=== PATIENT | male | born 1965 | race Caucasian/White ===

== ENCOUNTER → 2017-09-17 | Outpatient (CLI) | payer OTHER ==
--- NOTE | 2017-09-18 06:23 | REP ---
RIGHT FEMUR, FOUR VIEWS: HISTORY: Contusion. There is no acute fracture or dislocation. The joint spaces are normal in appearance. IMPRESSION: There is no acute fracture or dislocation. Signed by Aba Caal MD 09/18/2017 08:24 A
== END ==
LOC: M ADAMS 16:14
PROVIDERS: ATTEND Physician Assistant Medical
DX: S70.11XA Contusion of right thigh, initial encounter (principal); X58.XXXA Exposure to other specified factors, initial encounter; Y92.89 Other specified places as the place of occurrence of the external cause; Y93.89 Activity, other specified; Y99.8 Other external cause status

== ENCOUNTER → 2018-01-31 | Outpatient (CLI) | payer OTHER ==
[2018-01-31 17:06] LABS: ANION GAP 5 MEQ/L (8-16); BLOOD UREA NITROGEN 23 MG/DL (7-18); CALCIUM LEVEL 8.6 MG/DL (8.5-10.1); CARBON DIOXIDE LEVEL 25 MEQ/L (21-32); CHLORIDE LEVEL 112 MEQ/L (98-107); GLOMERULAR FILTRATION RATE > 60.0 (>56); GLUCOSE, FASTING 84 MG/DL (70-100); POTASSIUM SERUM 4.5 MEQ/L (3.5-5.1); SODIUM LEVEL 142 MEQ/L (136-145); URIC ACID 8.6 MG/DL (3.5-7.2)
== END ==
LOC: M WUC 11:24
DX: M10.9 Gout, unspecified (principal)
CPT/HCPCS: 84550

== ENCOUNTER → 2018-07-13 | Outpatient (CLI) | payer OTHER ==
[2018-07-13 13:37] LABS: ALKALINE PHOSPHATASE 86 U/L (45-117); ALT/SGPT 27 U/L (12-78); ANION GAP 9 MEQ/L (8-16); AST/SGOT 19 U/L (7-37); BILIRUBIN,TOTAL 0.6 MG/DL (0.2-1.0); BLOOD UREA NITROGEN 13 MG/DL (7-18); CARBON DIOXIDE LEVEL 25 MEQ/L (21-32); CHLORIDE LEVEL 109 MEQ/L (98-107); CHOLESTEROL LEVEL 190 MG/DL (<200); CREATININE FOR GFR 0.99 MG/DL (0.70-1.30); GLOMERULAR FILTRATION RATE > 60.0 (>56); GLUCOSE, FASTING 84 MG/DL (70-100); HDL CHOLESTEROL 38 MG/DL (>40); NON-HDL-C 152 MG/DL; POTASSIUM SERUM 4.5 MEQ/L (3.5-5.1); SODIUM LEVEL 143 MEQ/L (136-145); TRIGLYCERIDES LEVEL 133 MG/DL (<150)
[2018-07-13 13:38] LABS: ALBUMIN 4.2 GM/DL (3.2-5.2); ALBUMIN/GLOBULIN RATIO 1.35 (1.00-1.93); LDL CHOLESTEROL 125 MG/DL (<100); TOTAL PROTEIN 7.3 GM/DL (6.4-8.2); URIC ACID 7.7 MG/DL (3.5-7.2)
[2018-07-15 00:07] LABS: PSA TOTAL 0.3 ng/mL (0.0-4.0)
== END ==
LOC: M WUC 09:30
DX: Z12.5 Encounter for screening for malignant neoplasm of prostate (principal); M10.9 Gout, unspecified; E78.5 Hyperlipidemia, unspecified
CPT/HCPCS: 84550

== ENCOUNTER 2018-09-14 09:12 | Day surgery (SDC) | payer OTHER ==
[~2018-09-14 09:12] MED LIST: PROPOFOL 200 MG/20 ML VIAL As Ordered
[2018-09-14] MEDS ORDERED: NS 1,000 ML IV (09:45)
== END 2018-09-14 10:57 | disposition home or self-care (01) ==
LOC: M OPP 09:12
DX: Z12.11 Encounter for screening for malignant neoplasm of colon (principal); K57.30 Diverticulosis of large intestine without perforation or abscess without bleeding; K64.8 Other hemorrhoids; I10 Essential (primary) hypertension; M10.9 Gout, unspecified; R06.83 Snoring; Z98.0 Intestinal bypass and anastomosis status; Z79.899 Other long term (current) drug therapy
CPT/HCPCS: 45378

== ENCOUNTER → 2019-03-21 | Outpatient (CLI) | payer OTHER ==
[~2019-03-21] MED LIST changes: +ALLO100T PO; -PROPOFOL 200 MG/20 ML VIAL As Ordered
--- NOTE | 2019-03-22 02:49 | REP ---
Clinical: Left forearm pain. Technique: AP and lateral views of the left forearm. Findings: Soft-tissue swelling overlies the mid forearm. No foreign body identified. The osseous structures are intact and normal. Impression: Soft-tissue swelling. Electronically Signed by Deejay Anderson MD 03/22/2019 02:41 A
== END ==
LOC: M ADAMS 18:48
PROVIDERS: ATTEND Physician Assistant
DX: M79.632 Pain in left forearm (principal)

== ENCOUNTER 2021-03-15 20:57 | Emergency (ER) | payer OTHER ==
[~2021-03-15] VITALS: Ht 180.3 cm; Wt 124.7 kg
[2021-03-15] MEDS ORDERED: KETOROLAC 30 MG/ML 1ML VIAL IV ONE (21:55)
[2021-03-15] MEDS ORDERED: NS 1,000 ML IV ONE (21:55)
[2021-03-15 22:22] LABS: BASO # 0.1 10^3/uL (0.0-0.2); BASO % 0.8 % (0.0-1.0); EOS # 0.2 10^3/uL (0.0-0.5); EOS % 1.8 % (0.0-3.0); HEMOGLOBIN 14.4 g/dl (13.5-17.5); LYMPH # 2.1 10^3/uL (1.5-5.0); LYMPH % 15.6 % (24.0-44.0); MEAN CORPUSCULAR HEMOGLOBIN 30.6 pg (27.0-33.0); MEAN CORPUSCULAR HGB CONC 33.5 g/dl (32.0-36.5); MEAN CORPUSCULAR VOLUME 91.5 fl (80.0-96.0); MONO # 1.1 10^3/uL (0.0-0.8); MONO % 8.6 % (2.0-8.0); NEUTROPHILS # 9.6 10^3/uL (1.5-8.5); NEUTROPHILS % 72.9 % (36.0-66.0); PLATELET COUNT, AUTOMATED 290 10^3/uL (150-450); WHITE BLOOD COUNT 13.1 10^3/uL (4.0-10.0)
[2021-03-15 22:36] LABS: ALT/SGPT 32 U/L (12-78); BILIRUBIN,DIRECT 0.1 MG/DL (0.0-0.2); BILIRUBIN,TOTAL 0.4 MG/DL (0.2-1.0); BLOOD UREA NITROGEN 21 MG/DL (7-18); CALCIUM LEVEL 8.5 MG/DL (8.5-10.1); CARBON DIOXIDE LEVEL 24 MEQ/L (21-32); CHLORIDE LEVEL 110 MEQ/L (98-107); CREATININE FOR GFR 1.32 MG/DL (0.70-1.30); GLOMERULAR FILTRATION RATE > 60.0 (>56); GLUCOSE, FASTING 125 MG/DL (70-100); LIPASE 133 U/L (73-393); POTASSIUM SERUM 4.8 MEQ/L (3.5-5.1); SODIUM LEVEL 142 MEQ/L (136-145); TOTAL PROTEIN 7.2 GM/DL (6.4-8.2)
--- NOTE | 2021-03-15 22:45 | REPVR ---
PROCEDURE INFORMATION: Exam: CT Abdomen And Pelvis Without Contrast Exam date and time: 03/15/2021 9:59 PM Age: 55 years old Clinical indication: Abdominal pain; Flank; Right; Additional info: Right flank pain TECHNIQUE: Imaging protocol: Computed tomography of the abdomen and pelvis without contrast. Radiation optimization: All CT scans at this facility use at least one of these dose optimization techniques: automated exposure control; mA and/or kV adjustment per patient size (includes targeted exams where dose is matched to clinical indication); or iterative reconstruction. COMPARISON: CT ABD PELVIS W/O CONTRAST 01/25/2015 5:28 PM FINDINGS: Lungs: No suspicious mass or airspace process in the visualized lung bases. Liver: Noncontrast liver shows no obvious lesion. Gallbladder and bile ducts: Gallbladder is present and shows no evidence of gallstone. Pancreas: Noncontrast pancreas shows no obvious mass or adjacent fluid. Spleen: Noncontrast spleen shows no obvious focal deformity. Adrenal glands: Adrenal glands are normal in appearance. Kidneys and ureters: Left kidney demonstrates nonobstructive punctate midpole calculus with no hydronephrosis. Right kidney demonstrates perinephric stranding and mild right hydronephrosis, with a punctate right UPJ stone, series 201 image 86 and coronal image 50. Distal to this level the ureter is normal in caliber and is not certain whether this punctate stone is obstructing. Stomach and bowel: Postsurgical changes of gastric bypass procedure are present. No evidence of small bowel obstruction. No evidence of acute diverticulitis. Appendix: Appendix is not seen. No RLQ inflammation to suggest appendicitis. Intraperitoneal space: No pneumoperitoneum. Vasculature: Atherosclerotic change present in the aorta, without aneurysm. Lymph nodes: No enlarged lymph nodes. Urinary bladder: Urinary bladder appears normal. Reproductive: No overt enlargement of the prostate gland. Bones/joints: Chronic appearing L5 pars inter-articularis defects are present. Degenerative changes are seen in the lumbar spine with disc height loss, endplate osteophytes and hypertrophic facet arthropathy. Other findings: Limited evaluation without enteric or IV contrast. IMPRESSION: 1. Right-sided perinephric stranding and mild to moderate hydronephrosis. There may be scarring or a stricture at the right UPJ level, given the presence of prior stone disease. A punctate stone is present at the right UPJ level measuring perhaps 1 mm. This may or may not be obstructing. 2. Nonobstructive left renal midpole calculus Electronically signed by: Aries Scott On 03/15/2021 22:45:28 PM
[2021-03-15] MEDS ORDERED: FLOM0.4C39 PO (23:50)
[2021-03-15] MEDS ORDERED: KETO10TAB PO (23:50)
[2021-03-15] MEDS ORDERED: TAMSULOSIN 0.4 MG CAP PO ONE (23:50)
[2021-03-16 00:12] VITALS: BP 138/75
== END 2021-03-16 00:14 | disposition home or self-care (01) ==
LOC: M ED 20:57
DX: N13.2 Hydronephrosis with renal and ureteral calculous obstruction (principal); R11.10 Vomiting, unspecified
CPT/HCPCS: 74176; 80048; 80076; 81001; 83690; 85025; 96361; 96374; 99284; J1885

== ENCOUNTER 2021-06-16 17:07 | Emergency (ER) | payer OTHER ==
[~2021-06-16] VITALS: Ht 177.8 cm; Wt 124.1 kg
[~2021-06-16 17:07] MED LIST changes: +FLOM0.4C39 PO; +KETO10TAB PO
[2021-06-16] MEDS ORDERED: TETRACAINE 0.5% OPHTH SOLN 4ML OU ONE (19:10)
[2021-06-16 21:24] VITALS: BP 156/90
== END 2021-06-16 21:27 | disposition home or self-care (01) ==
LOC: M ED 17:07
DX: H53.121 Transient visual loss, right eye (principal); J01.30 Acute sphenoidal sinusitis, unspecified

== ENCOUNTER → 2021-07-07 | Outpatient (CLI) | payer OTHER ==
[~2021-07-07] MED LIST changes: +PROHANCE 279.3MG/ML 15ML VIAL As Ordered ONE; +PROHANCE 279.3MG/ML 5ML VIAL As Ordered ONE
--- NOTE | 2021-07-07 09:06 | REP ---
INDICATION: Assess stenosis TECHNIQUE: Carotid ultrasonography was performed bilaterally FINDINGS: Right: CCA systolic: 114.0 centimeters/second CCA diastolic: 23.7 centimeters/second ICA systolic: 36.7 centimeters/second ICA diastolic: 12.8 centimeters/second ICA CCA ratio: 0.32 Left: CCA systolic: 125.5 centimeters/second CCA diastolic: 33.6 centimeters/second ICA systolic: 51.5 centimeters/second ICA diastolic: 20.0 centimeters/second ICA CCA ratio: 0.41 Vertebral artery: Right: Antegrade flow left: Antegrade flow There is a [id number] amount of patchy echogenic material seen along the carotid arterial caputo some of which casts in acoustic shadow consistent with calcific deposition. IMPRESSION: According to the SRU criteria there is less than 50% stenosis of the internal carotid artery bilaterally. There is evidence of decreased velocity seen in both internal carotid arteries which could be secondary to a downstream stenosis. Consider head and neck MRA. <Electronically signed by Ok Elizabeth > 07/07/21 [id number]
--- NOTE | 2021-07-07 11:04 | REP ---
INDICATION: AMAUROSIS FUGAX US 1ST. COMPARISON: Comparison brain CT study June 16, 2021. TECHNIQUE: Axial and sagittal imaging planes are utilized for T1 and T2-weighted scans. Sequences include spin-echo, fast spin echo, FLAIR, and diffusion weighted sequences. 20 mL of intravenous ProHance is administered and post gadolinium enhanced axial, coronal, and sagittal T1 fat sat orbital images are acquired. FINDINGS: Craniocervical junction and upper cervical cord are normal in appearance. No bony calvarial lesion is seen. Diffusion-weighted scans show no evidence of restricted diffusion to suggest acute ischemia. There is no evidence of intracranial hemorrhage. No infarct, extra-axial fluid collection, or mass lesion is observed. Orbital images show no evidence of intraconal or extraconal orbital mass. The visualized paranasal sinuses are clear except for the sphenoid sinus on the right which is filled with heterogeneous mucoid material. There is mild mucosal thickening in the sphenoid sinus on the left. Optic chiasm and suprasellar cistern are unremarkable. No vascular abnormality is appreciated. Post gadolinium enhanced imaging shows no abnormal gadolinium enhancement. The pituitary stalk and the pituitary gland appear normal. No abnormal contrast enhancement. IMPRESSION: No acute intracranial or intraorbital lesion. <Electronically signed by Leandro Pizarro > 07/07/21 [id number]
== END ==
LOC: M RAD 08:02
PROVIDERS: ATTEND Physician Assistant
DX: G45.3 Amaurosis fugax (principal)
CPT/HCPCS: 70553; 93880; A9576

== ENCOUNTER 2024-09-26 23:29 | Emergency (ER) | payer OTHER ==
[~2024-09-26] VITALS: Ht 177.8 cm; Wt 127.3 kg
[~2024-09-26 23:29] MED LIST changes: -PROHANCE 279.3MG/ML 15ML VIAL As Ordered ONE; -PROHANCE 279.3MG/ML 5ML VIAL As Ordered ONE
[2024-09-27 00:23] LABS: BASO # 0.1 10^3/uL (0.0-0.2); BASO % 0.9 % (0.0-1.0); EOS # 0.2 10^3/uL (0.0-0.5); EOS % 1.9 % (0.0-3.0); HEMATOCRIT 42.3 % (42.0-52.0); HEMOGLOBIN 14.3 g/dl (13.5-17.5); LYMPH # 2.4 10^3/uL (1.5-5.0); LYMPH % 20.3 % (24.0-44.0); MEAN CORPUSCULAR HEMOGLOBIN 31.1 pg (27.0-33.0); MEAN CORPUSCULAR HGB CONC 33.8 g/dl (32.0-36.5); MONO # 1.1 10^3/uL (0.0-0.8); MONO % 9.1 % (2.0-8.0); NEUTROPHILS # 8.1 10^3/uL (1.5-8.5); NEUTROPHILS % 67.2 % (36.0-66.0); PLATELET COUNT, AUTOMATED 339 10^3/uL (150-450)
[2024-09-27 00:42] LABS: BLOOD UREA NITROGEN 22 MG/DL (9-23); CALCIUM LEVEL 9.7 MG/DL (8.5-10.1); CARBON DIOXIDE LEVEL 24 MMOL/L (20-31); CHLORIDE LEVEL 109 MMOL/L (98-107); CREATININE FOR GFR 1.26 MG/DL (0.70-1.30); GLOMERULAR FILTRATION RATE > 60.0 (>56); GLUCOSE, FASTING 116 MG/DL (60-100); POTASSIUM SERUM 4.6 MMOL/L (3.5-5.1); SODIUM LEVEL 141 MMOL/L (136-145)
[2024-09-27] MEDS: KETOROLAC 30 MG/ML 1ML VIAL IV ONE (01:10)
[2024-09-27] MEDS: ONDANSETRON 4MG 2ML VIAL IV ONE (01:10)
[2024-09-27] MEDS ORDERED: FLOM0.4C39 PO (02:17)
[2024-09-27] MEDS ORDERED: ONDA-282 PO (02:17)
[2024-09-27] MEDS ORDERED: PERC5TAB12 PO (02:17)
[2024-09-27] MEDS: TAMSULOSIN 0.4 MG CAP PO ONE (02:34)
[2024-09-27] MEDS: OXYCODONE/APAP 5MG/325MG(HOME DOSE PACK) PO ONE (02:35)
[2024-09-27 02:45] VITALS: BP 138/81; TEMP 97.3; O2SAT 98
== END 2024-09-27 03:00 | disposition home or self-care (01) ==
LOC: M ED 23:29
DX: N20.1 Calculus of ureter (principal); Z87.442 Personal history of urinary calculi; Z98.84 Bariatric surgery status; Z79.83 Long term (current) use of bisphosphonates; Z79.899 Other long term (current) drug therapy
CPT/HCPCS: 36415; 74176; 80048; 81001; 85025; 96374; 99284; J1885; J2405